=== PATIENT | female | born 1995 | race American Indian/Alaskan Native ===

== ENCOUNTER 2017-08-18 08:14 | Inpatient (IN) | payer OTHER ==
--- NOTE | 2017-08-18 13:14 | NUR ---
08/18/17 1314 Laurence Hector 1305 PATIENT ARRIVES TO PACU AWAKE, ALERT AND ORIENTED X3. RESP EVEN AND UNLABORED, ON ROOM AIR. PATIENT REPORTS MINIMAL PAIN, DENIES NAUSEA.
--- NOTE | 2017-08-20 11:22 | PR ---
[facility] [address] [facility] [place] [address] Signed PP Progress Notes Datetime Report Generated by CPN: 08/20/2017 11:22 SUBJECTIVE: [id number] Pain: Within normal limits Nausea/Vomiting: Denies Vital Signs: [id number] Vital Signs: Reviewed; Within Normal Limits Notable Details: PP Hgb/Hct = 9.4/28.0 EXAM: [id number] Abdomen/Uterus: Normal Lochia: Normal Extremities: Normal Incision: Normal IMPRESSION/PLAN/PROCEDURES: [id number] Impression: Normal progression Plan: Discharge Procedures: None Progress Notes: Doing well, ready to go home Signing Physician: Markus Mosley MD Copies: ~ *Electronically Signed* 08/20/17 1122 MARKUS MOSLEY MD PATIENT NAME: DEIN JACOBS PROGRESS NOTE DATE OF : [birth year] PHYSICIAN: MARKUS MOSLEY MD RPT #: [id number] REPORT IS CONFIDENTIAL AND NOT TO BE RELEASED WITHOUT AUTHORIZATION
--- NOTE | 2017-08-22 10:20 | OR ---
[facility] [address] [place], [place] [address] Signed DATE OF OPERATION: 08/18/2017 SURGEON: Jose Tao MD Patient of Dr. Tao. PREOPERATIVE DIAGNOSES: Term , previous shoulder dystocia, macrosomia and unripe cervix. POSTOPERATIVE DIAGNOSES: Term , previous shoulder dystocia, macrosomia and unripe cervix. PROCEDURE: Primary low transverse segment section, delivery of live male infant. DIRECTOR OF PROMOTIONS: José Antonio Dutton DO. ANESTHESIA: Spinal. ESTIMATED BLOOD LOSS: 800 mL. COMPLICATIONS: None. DRAINS: Peterson to bladder. FINDINGS: Live male infant, Apgars 9 and 9. Weight 9 pounds 1 ounce. There was thin meconium and nuchal cord x2. Normal uterus, normal tubes and ovaries bilateral. DESCRIPTION OF PROCEDURE: The patient brought to the operating room, placed in supine position. After adequate spinal anesthesia was obtained, was placed in dorsal lithotomy position, prepped and draped in usual sterile fashion. Peterson catheter was placed in the bladder. A Pfannenstiel skin incision was made with a scalpel and extended through subcutaneous tissue with the Bovie. The fascia was nicked with scalpel and extended in transverse Electronically Signed By: JOSE TAO MD 08/22/17 1020 PATIENT NAME: DENI JACOBS OPERATIVE REPORT DATE OF : [birth year] REPORT #: [id number] PHYSICIAN: JOSE TAO MD PCP: JOSE TAO MD REPORT IS CONFIDENTIAL AND NOT TO BE RELEASED WITHOUT AUTHORIZATION [facility] [address] [place], [place] [address] Signed fashion using curved scissors. The underlying abdominal musculature was bluntly and sharply from the fascia above and below the incision. The abdominal musculature was bluntly and sharply along the midline. The peritoneum was grasped with hemostats, elevated, and nicked with Metzenbaum scissors, extended in vertical fashion using Metzenbaum scissors. The Prashanth self-retaining retractor was inserted into the incision and tightened in place. The lower uterine segment was identified. The bladder was noted to be down below and so the lower uterine segment was carefully nicked with the scalpel. Entered the rest of the way with finger dissection and incision opened in transverse fashion using finger dissection. The infant was noted to be in vertex JORGE presentation. head was delivered from the incision with tight fit. The cord was noted to be around the neck twice. This was removed. Fluid was noted to be light green. Rest of the infant was delivered from the incision. Mouth and nose suctioned bulb syringe while the cord was doubly clamped and cut. was passed off the table in good condition, awaiting nurse. The placenta was manually removed and uterine cavity explored a lap pad to remove any retained membranes. There was more than normal bleeding from the uterus and incision, but this was controlled by the time of the closure. An angle stitch of 0 Monocryl was placed in one end incision in a running locking stitch of 0 Monocryl starting at the other end, used to close the incision. A second running stitch of 0 Monocryl was used to imbricate the 1st layer. There was a small amount of bleeding at the right angle. This was controlled with a single stitch of 0 Monocryl. When good hemostasis was obtained, the pelvis was irrigated, suctioned and examined, any superficial bleeding spots were cauterized with the Bovie. The Prashanth retractor was removed. The Evicel liquid was placed over the lower uterine segment because of the raw areas at each angle and good hemostasis was noted. The lower uterine segment was sprinkled with powdered ACell to help with healing. The anterior wall peritoneum was then closed using running stitch of 2-0 Vicryl suture. The abdominal musculature was reapproximated using interrupted stitches of 0 Vicryl suture. The abdominal wall incision was irrigated, suctioned, examined, any bleeding spots were cauterized with the Bovie. The remaining Evicel was placed in the lower part of the abdominal musculature where there was a slight raw area that help with healing. The remaining powdered ACell sprinkled over the abdominal musculature to help with healing. The fascia was closed using two running stitch of 0 Vicryl suture meeting in the midline. Subcutaneous tissue was irrigated, suctioned, examined, any bleeding spots were cauterized with the Bovie. The remaining powdered ACell was sprinkled over the subcutaneous tissue to help with healing and then the subcutaneous tissue closed using interrupted stitches of 3-0 Vicryl suture. Skin was reapproximated using skin clips. The patient tolerated the procedure well, went to recovery room in good condition. The sponge, needle, and instrument count correct at the end of the procedure. Electronically Signed By: JOSE TAO MD 08/22/17 1020 PATIENT NAME: DENI JACOBS OPERATIVE REPORT DATE OF : [birth year] REPORT #: [id number] PHYSICIAN: JOSE TAO MD PCP: JOSE TAO MD REPORT IS CONFIDENTIAL AND NOT TO BE RELEASED WITHOUT AUTHORIZATION [facility] [address] [place], [place] [address] Signed MD ALFONZO Macias/LAYO /[id number] Copies: ~ Electronically Signed By: JOSE TAO MD 08/22/17 1020 PATIENT NAME: DENI JACOBS OPERATIVE REPORT DATE OF : [birth year] REPORT #: [id number] PHYSICIAN: JOSE TAO MD PCP: JOSE TAO MD REPORT IS CONFIDENTIAL AND NOT TO BE RELEASED WITHOUT AUTHORIZATION
== END 2017-08-20 12:55 | disposition home or self-care (01) | DRG 766 ==
LOC: FBC 09:02
PROVIDERS: ADMIT General Practice
PROC: 10D00Z1 Extraction of Products of Conception, Low, Open Approach (ICD-10-PCS; principal; 2017-08-18 12:00)
DX: O36.63X0 Maternal care for excessive fetal growth, third trimester, not applicable or unspecified (principal); O69.81X0 Labor and delivery complicated by cord around neck, without compression, not applicable or unspecified; O77.0 Labor and delivery complicated by meconium in amniotic fluid; O34.43 Maternal care for other abnormalities of cervix, third trimester; O99.824 Streptococcus B carrier state complicating childbirth; Z86.19 Personal history of other infectious and parasitic diseases; Z87.891 Personal history of nicotine dependence; Z3A.39 39 weeks gestation of pregnancy; Z37.0 Single live birth
CPT/HCPCS: 01961; 36415; 85027; C1763; J0690; J1170; J2274; J2405; J2550; J2590; J2765; J3010; J7120

== ENCOUNTER 2020-08-31 10:47 | Inpatient (IN) | payer OTHER ==
[~2020-08-31] VITALS: Ht 152.4 cm; Wt 105.0 kg
--- NOTE | 2020-09-13 10:59 | NUR ---
RAPID SWAB COLLECTED
--- NOTE | 2020-09-13 14:28 | NUR ---
09/13/20 1428 Lamar Levin 1420-PATIENT ARRIVED TO ROOM 104 FOR PACU AWAKE DENIES PAIN OR NAUSEA. PATIENT ITCHY BUT DENIES NEED FOR MEDICATION. MOORE CATHETER DRAINING YELLOW URINE. FUNDUS ONE BELOW UMBILICUS FIRM LIGHT RUBRA DRAINAGE ON NICOL PAD. SPINAL LEVEL AT T10. SR. LR WITH 20 PITOCIN INFUSING TO RIGHT HAND CDI
--- NOTE | 2020-09-14 14:01 | PR ---
[facility] [address] [place], [place] [address] Signed PP Progress Notes Datetime Report Generated by CPN: 09/14/2020 14:01 SUBJECTIVE: [id number] Pain: Within Normal Limits Nausea/Vomiting: Denies Vital Signs: [id number] Vital Signs: Reviewed; Within Normal Limits Notable Details: PP Hgb/Hct = 10.6/31.7 Abdomen/Uterus: Normal Lochia: Normal Extremities: Normal Incision: Normal IMPRESSION/PLAN/PROCEDURES: [id number] Impression: Normal Progression Plan: Continue Present Management Procedures: None Progress Notes: C/o Nausea and soem emesis over night, but feelingmuch better now. Tolerating lunch without problem. Good urine output now with dilute urine in Peterson. Increase activity as tolerated. D/C Peterson. Signing Physician: Markus Tao MD Copies: ~ *Electronically Signed* 09/14/20 1401 MARKUS TAO MD PATIENT NAME: DENI JACOBS PROGRESS NOTE DATE OF : [birth year] PHYSICIAN: MARKUS TAO MD RPT #: [id number] REPORT IS CONFIDENTIAL AND NOT TO BE RELEASED WITHOUT AUTHORIZATION
--- NOTE | 2020-09-15 09:53 | PR ---
[facility] [address] [facility] [place] [address] Signed PP Progress Notes Datetime Report Generated by CPN: 09/15/2020 09:53 SUBJECTIVE: [id number] Pain: Within Normal Limits Nausea/Vomiting: Denies Vital Signs: [id number] Vital Signs: Reviewed; Within Normal Limits Notable Details: PP Hgb/Hct = 10.6/31.7 Abdomen/Uterus: Normal Lochia: Normal Extremities: Normal Incision: Normal IMPRESSION/PLAN/PROCEDURES: [id number] Impression: Normal Progression Plan: Discharge Procedures: None Progress Notes: Doing well, without complaitn, ready to go home, but baby probably needs to stay 1 more day. Signing Physician: Markus Mosley MD Copies: ~ *Electronically Signed* 09/15/20 0953 MARKUS MOSLEY MD PATIENT NAME: DENI JACOBS PROGRESS NOTE DATE OF : 94 PHYSICIAN: MARKUS MOSLEY MD RPT #: [id number] REPORT IS CONFIDENTIAL AND NOT TO BE RELEASED WITHOUT AUTHORIZATION
--- NOTE | 2020-09-19 06:04 | OR ---
[facility] [address] [place], [place] [address] Signed DATE OF OPERATION: 09/13/2020 SURGEON: Markus Tao MD PREOPERATIVE DIAGNOSES: 1. Term . 2. Previous section. 3. Previous shoulder dystocia. POSTOPERATIVE DIAGNOSIS: 1. Term . 2. Previous section. 3. Previous shoulder dystocia. PROCEDURES: Repeat low transverse segment section delivery live female . COLOR CONTROL SUPERVISOR: Dr. Vincent. ANESTHESIA: Spinal. ESTIMATED BLOOD LOSS: 500 mL. COMPLICATIONS: None. DRAINS: Peterson to bladder. FINDINGS: Live female , Apgars 8 and 9. Weight 9 pounds 0 ounces. Normal uterus, normal tubes and ovaries bilateral. DESCRIPTION OF PROCEDURE: The patient was brought to the operating room, placed in supine position. After adequate spinal anesthesia was obtained, she was prepped and draped in the usual sterile fashion. Peterson catheter was placed in the bladder. Pfannenstiel skin incision was made Electronically Signed By: MARKUS TAO MD 09/14/20 1359 PATIENT NAME: DENI JACOBS OPERATIVE REPORT DATE OF : [birth year] REPORT #: [id number] PHYSICIAN: MARKUS TAO MD PCP: MARKUS TAO MD REPORT IS CONFIDENTIAL AND NOT TO BE RELEASED WITHOUT AUTHORIZATION [address], [place] [address] Signed with a scalpel through the previous surgical scar. Subcutaneous tissue was dissected with the Bovie and the scalpel. Fascia was nicked with scalpel and extended in transverse fashion using curved scissors. The underlying abdominal musculature was bluntly and sharply from the fascia above and below the incision. The abdominal musculature was bluntly and sharply along the midline. The peritoneum was grasped with hemostats, elevated, nicked with scissors, extended in vertical fashion using curved scissors. The Prashanth self-retaining retractor was inserted into the incision and tightened in place. The lower uterine segment was identified. The lower uterine segment was carefully nicked with scalpel and bulging bag of light meconium came from the incision. The incision was extended in transverse fashion using finger dissection. The sac was then opened and the infant's head easily delivered from the incision. The rest of the was then easily delivered from the incision and the cord doubly clamped and cut. The passed off table in good condition to awaiting nurse. The placenta was manually removed and uterine cavity explored to the lap pad to remove any retained membranes. An angle stitch of 0-Monocryl was placed at one end of the incision and a running locking stitch of 0-Monocryl starting at the other end used to close the incision. A second running stitch of 0-Monocryl was used to imbricate the first layer. There was small hematoma above the left side of the incision. This was controlled with a obppad-ml-wldix stitch of 0-Monocryl. Good hemostasis was obtained. The entire pelvis was irrigated, suctioned, and examined, and any superficial bleeding spots cauterized with Bovie. When good hemostasis was obtained, the Prashanth retractor was removed and sheet of ACell placed over the lower uterine segment to help with healing. The anterior wall peritoneum was then closed using running stitch of 2-0 Vicryl suture. The abdominal musculature was reapproximated using interrupted stitches of 0-Vicryl suture. The abdominal wall incision was irrigated, suctioned, and examined, and any bleeding spots cauterized with the Bovie. A powdered ACell was then sprinkled over the abdominal musculature to help with healing. The fascia was closed using two running stitch of 0-Vicryl suture meeting in the midline. Subcutaneous tissue was irrigated, suctioned, and examined, and any bleeding spots cauterized with the Bovie. Subcutaneous tissue was closed using interrupted stitches of 3-0 Vicryl suture. The skin was reapproximated using skin clips. The patient tolerated the procedure well and went to the recovery room in good condition. The sponge, needle, and instrument count correct. Markus Tao MD MJB/MODL /[id number] Electronically Signed By: MARKUS TAO MD 09/14/20 1359 PATIENT NAME: DENI JACOBS OPERATIVE REPORT DATE OF : [birth year] REPORT #: [id number] PHYSICIAN: MARKUS TAO MD PCP: MARKUS TAO MD REPORT IS CONFIDENTIAL AND NOT TO BE RELEASED WITHOUT AUTHORIZATION [address] [address] Signed Copies: ~ Electronically Signed By: MARKUS TAO MD 09/14/20 1359 PATIENT NAME: DENI JACOBS OPERATIVE REPORT DATE OF : [birth year] REPORT #: [id number] PHYSICIAN: MARKUS TAO MD PCP: MARKUS TAO MD REPORT IS CONFIDENTIAL AND NOT TO BE RELEASED WITHOUT AUTHORIZATION
== END 2020-09-15 15:15 | disposition home or self-care (01) | DRG 787 ==
LOC: FBC 09-10 06:45
PROVIDERS: ADMIT General Practice; ATTEND General Practice
PROC: 10D00Z1 Extraction of Products of Conception, Low, Open Approach (ICD-10-PCS; principal; 2020-09-13 12:00)
DX: O34.211 Maternal care for low transverse scar from previous cesarean delivery (principal); O99.324 Drug use complicating childbirth; N85.8 Other specified noninflammatory disorders of uterus; Z37.0 Single live birth; Z20.822 Contact with and (suspected) exposure to COVID-19; Z3A.39 39 weeks gestation of pregnancy; O77.0 Labor and delivery complicated by meconium in amniotic fluid; O99.334 Smoking (tobacco) complicating childbirth; F17.200 Nicotine dependence, unspecified, uncomplicated; F12.90 Cannabis use, unspecified, uncomplicated; O28.2 Abnormal cytological finding on antenatal screening of mother; Z86.19 Personal history of other infectious and parasitic diseases
CPT/HCPCS: 85027; A9270; C9803; J0690; J2001; J2274; J2370; J2405; J2550; J2590; J3010; J7121

== ENCOUNTER 2021-08-17 08:54 | Emergency (ER) | payer OTHER ==
[~2021-08-17] VITALS: Ht 152.4 cm; Wt 99.9 kg
[~2021-08-17 08:54] MED LIST: CEPHALEXIN500 M1 PO; HYDROCODON-ACE1 EA11 PO
--- OUTSIDE RECORDS SUMMARY | 2021-08-17 08:56 | XMS ---
PreManage Notification: DENI JACOBS Security Specifications Checker Events No recent Security Events currently on file CRITERIA MET - [facility] - 2 Visits in 30 Days CARE PROVIDERS There are no care providers on record at this time. Madalyn has no Care Guidelines for this patient. Kimberlee VISIT COUNT (12 MO.) 2 [facility]. TOTAL 2 NOTE: Visits indicate total known visits. ED/[facility] VISIT TRACKING (12 MO.) 08/17/2021 08:[address] [facility] [address] [place] TYPE: Emergency COMPLAINT: - WOUND CHECK 08/15/2021 09:39 [facility] [place] TYPE: Emergency COMPLAINT: - R CHEST WOUND INPATIENT VISIT TRACKING (12 MO.) 09/13/2020 10:00 [facility] [place] [place] TYPE: [facility] COMPLAINT: - REPEAT SECTION DIAGNOSES: - Nicotine dependence, unspecified, uncomplicated - Maternal care for unspecified type scar from previous delivery - Abnormal cytological finding on screening of mother - Single live - 39 weeks gestation of - Cannabis use, unspecified, uncomplicated - 39 weeks gestation of - Single live - Maternal care for low transverse scar from previous delivery - Labor and delivery complicated by meconium in amniotic fluid - Drug use complicating childbirth - Other specified noninflammatory disorders of uterus - Personal history of other infectious and parasitic diseases - Smoking (tobacco) complicating childbirth - Other specified noninflammatory disorders of uterus [email or web address]
== END 2021-08-17 09:50 | disposition home or self-care (01) ==
LOC: ED 08:54
DX: N61.1 Abscess of the breast and nipple (principal); Z87.891 Personal history of nicotine dependence
CPT/HCPCS: 99282